=== PATIENT | female | born 1995 | race Caucasian/White ===

== ENCOUNTER 2020-12-08 12:18 | Emergency (ER) | payer OTHER ==
[~2020-12-08] VITALS: Ht 165.1 cm; Wt 113.4 kg
[2020-12-08 12:31] VITALS: BP_SYST 127
[2020-12-08 12:58] VITALS: BP_SYST 127
== END 2020-12-08 13:19 | disposition home or self-care (01) ==
LOC: SED 12:18
DX: T15.91XA Foreign body on external eye, part unspecified, right eye, initial encounter (principal); X58.XXXA Exposure to other specified factors, initial encounter; Y93.89 Activity, other specified; Y92.89 Other specified places as the place of occurrence of the external cause; Y99.8 Other external cause status
CPT/HCPCS: 99283

== ENCOUNTER 2023-03-24 11:29 | Emergency (ER) | payer OTHER ==
[~2023-03-24] VITALS: Ht 165.1 cm; Wt 117.9 kg
[2023-03-24 11:38] VITALS: BP_SYST 137; PULSE 78; RESP 18; TEMP 98.2; O2SAT 100
[2023-03-24] MEDS ORDERED: AUG875 PO (12:28)
[2023-03-24] MEDS ORDERED: DIPHTH,PERTUSS(ACELL),TET VAC 0.5 ML VIAL (Tdap) I.M. ONE (12:30)
[2023-03-24] MEDS ORDERED: BACITRACIN 1 GM OINT TP ONE (12:35)
[2023-03-24] MEDS ORDERED: IBUPROFEN 600 MG TABLET PO ONE (13:00)
[2023-03-24 13:27] VITALS: BP_SYST 137; PULSE 78; RESP 18; TEMP 98.2; O2SAT 100
== END 2023-03-24 12:57 | disposition home or self-care (01) ==
LOC: SED 11:29
DX: S61.230A Puncture wound without foreign body of right index finger without damage to nail, initial encounter (principal); Z79.899 Other long term (current) drug therapy; W54.0XXA Bitten by dog, initial encounter; Y93.89 Activity, other specified; Y92.89 Other specified places as the place of occurrence of the external cause; Y99.8 Other external cause status
CPT/HCPCS: 90715; 99283